=== PATIENT | male | born 1955 | race Two or more races ===

== ENCOUNTER → 2024-10-27 | Day surgery (SDC) | payer MEDICARE, BC ==
[2024-10-24 09:24] LABS: Hematocrit 45.1 % (41.0-53.0); Hemoglobin 15.5 g/dL (13.5-17.5); Mean Corpuscular Hemoglobin 30.7 pg (28.0-32.0); Mean Corpuscular Volume 89.1 fL (80.0-100.0); Nucleated Red Blood Cells % 0.1 %
[2024-10-24 09:37] LABS: INR 1.08 (0.9-1.15); Partial Thromboplastin Time 26.5 SEC (24.5-34.5); Prothrombin Time 11.4 sec (9.3-11.8)
[2024-10-24 10:23] LABS: Alanine Aminotransferase 34 U/L (7-40); Alkaline Phosphatase 92 U/L (46-116); Calcium 9.8 mg/dL (8.7-10.4); Chloride 104 mmol/L (98-107)
[2024-10-24 10:24] LABS: Albumin 4.5 g/dL (3.2-4.8); Anion Gap 8 (5-15); BUN/Creatinine Ratio 12.0 (10.0-20.0); Blood Urea Nitrogen 11 mg/dL (9-23); Carbon Dioxide 30 mmol/L (20-31); Potassium 3.8 mmol/L (3.5-5.1); Sodium 142 mmol/L (136-145); Total Protein 6.7 g/dL (5.7-8.2)
[2024-10-24 10:25] LABS: Bilirubin, Total 0.5 mg/dL (0.2-1.0)
[2024-10-24 10:28] LABS: Glucose 158 mg/dL (74-106)
[~2024-10-27] VITALS: Ht 188 cm; Wt 108.9 kg
[~2024-10-27] MED LIST: APOA10CA PO; ATOR20TA50 PO; FLUMAZENIL 0.1 MG/ML INJ 10ML MDV IV ONE; IBUP-1453 PO; NALOXONE HCL 0.4 MG/ML VIAL ONE; PRIM50TA5 PO; PROP60CA34 PO; diphenhdrAMINE HCL 50 MG/1 ML VL ONE
[2024-10-27] MEDS: fentaNYL CITRATE 100 MCG/2 ML VL ONE (08:05)
[2024-10-27] MEDS: MIDAZOLAM HCL 2MG/2ML 2ml VIAL (1mg/ml) ONE (08:05)
--- NOTE | 2024-10-27 08:26 | DVHNC2 ---
Procedure - PROCEDURE DAY OCTOBER 27, 2024 PERFORMED BY: DR. RED REFERRING PROVIDER:DR ALMEIDA PROCEDURE PERFORMED: 1. COLONOSCOPY WITH MODERATE SEDATION 2. COLONOSCOPY WITH HOT SNARE POLYPECTOMY 3. COLONOSCOPY WITH COLD SNARE POLYPECTOMY 4. COLONOSCOPY WITH POLYPECTOMY WITH COLD BIOPSY FORCEPS PREPROCEDURE DIAGNOSIS: 1. COLON CANCER SCREENING POSTPROCEDURE DIAGNOSIS: 1. INTERNAL HEMORRHOIDS 2. DIVERTICULOSIS 3. SIX COLON POLYPS THROUGHOUT THE COLON MEDICATIONS USED;5MG OF VERSED AND 100 MCG OF FENTANYL IV INDICATIONS FOR PROCEDURE: THE PATIENT IS A 68-YEAR-OLD MALE PRESENTS FOR OUTPATIENT COLONOSCOPY FOR SCREENING DETAILS OF THE PROCEDURE: INFORMED CONSENT WAS OBTAINED AFTER RISKS BENEFITS AND ALTERNATIVES WERE DISCUSSED AT LENGTH WITH THE PATIENT. THE PATIENT GAVE CONSENT TO THE PROCEDURES WELL A MEDICATION USED FOR SEDATION. RECTAL EXAMINATION SHOWED INTERNAL HEMORRHOIDS. OLYMPUS VARIABLE TORSION PEDIATRIC COLONOSCOPE WAS INSERTED INTO THE RECTUM ADVANCE THE CECUM. THE SCOPE WAS THEN WITHDRAWN. THE PREP WAS GOOD WITH ONLY SMALL AMOUNTS OF STOOL. THERE WERE NO LARGE POLYPS, MASSES, STRICTURES, OR ARTERIOVENOUS MALFORMATION SEEN. THE PATIENT SIX POLYPS REMOVED FROM THE COLON. ONE IN THE CECAL BASE REMOVED WITH COLD SNARE MEASURING 5 MM, TWO IN THE ASCENDING COLON MEASURING THREE AND 5 MM WITH MENSTRUAL COLD SNARE POLYPECTOMY ONE IN THE DESCENDING COLON MEASURING 1 CM REMOVED WITH COLD SNARE POLYPECTOMY. THERE WAS A 5 MM COLON POLYP REMOVED WITH COLD BIOPSY FORCEPS IN THE DESCENDING COLON AND A 1 CM COLON POLYP REMOVED WITH HOT SNARE OFFERED MADE IN THE DESCENDING COLON. PATIENT HAD OFF MODERATE LEFT- SIDED DIVERTICULOSIS. MORE THAN 12 MINUTES WITHDRAWAL TIME WAS NOTED. RETROFLEXION SHOWED INTERNAL HEMORRHOIDS. PATIENT TOLERATED THE PROCEDURE WELL. COLONOSCOPY START TIME: 8:09 A.M. COLONOSCOPY CECUM TIME: 8:10 A.M. COLONOSCOPY END TIME: 8:12 A.M. IMPRESSION: 1. INTERNAL HEMORRHOIDS 2. DIVERTICULOSIS 3. SIX COLON POLYPS RECOMMENDATIONS: 1. FOLLOW UP WITH PRIMARY CARE PHYSICIAN 2. HIGH-FIBER DIET 3. REPEAT COLONOSCOPY IN 1-2 YEARS UNLESS OTHERWISE INDICATED BY PATHOLOGY OR SYMPTOMS I WOULD LIKE TO THANK DR. ALMEIDA FOR THE REFERRAL SERENITY RED MD Oct 27, 2024 08:26
[2024-10-27 08:29] VITALS: PULSE 75; RESP 15; TEMP 98.5; O2SAT 95
[2024-10-27 08:55] VITALS: BP 124/76; PULSE 74; RESP 24; O2SAT 95
== END | disposition home or self-care (01) ==
LOC: GI 07:35
PROVIDERS: ATTEND Specialist
DX: Z12.11 Encounter for screening for malignant neoplasm of colon (principal); D12.0 Benign neoplasm of cecum; K63.5 Polyp of colon; K57.30 Diverticulosis of large intestine without perforation or abscess without bleeding; K64.8 Other hemorrhoids; K63.89 Other specified diseases of intestine; I10 Essential (primary) hypertension; E78.00 Pure hypercholesterolemia, unspecified; Z79.899 Other long term (current) drug therapy; Z88.5 Allergy status to narcotic agent; Z98.890 Other specified postprocedural states
CPT/HCPCS: 36415; 45380; 45385; 80053; 85025; 85610; 85730; 88305; J2250; J3010; 99152